=== PATIENT | male | born 1975 | race Caucasian/White ===

== ENCOUNTER → 2017-08-07 | Outpatient (CLI) | payer OTHER ==
--- NOTE | 2017-08-07 10:41 | DIAGNOSTIC IMAGING REPORT ---
EXAMINATION: RENAL ULTRASOUND CLINICAL HISTORY: HEMATURIA COMPARISON STUDY: None FINDINGS: The right kidney measures 10.7 cm. The left kidney measures 11.4 cm. There is no evidence of hydronephrosis. There is an 8 mm upper pole left renal cyst. No bladder abnormalities are visualized. Bilateral ureteral jets were visualized. There is a 2.6 cm echogenic mass within the right lobe of the liver. This is consistent with although not specific for a hepatic hemangioma. IMPRESSION : 1. 8 mm left renal cyst 2. No evidence of hydronephrosis 3. 2.6 cm echogenic mass within the right lobe of the liver Electronically signed by: Son Beth M.D. 08/07/2017 10:40 AM Dictated Date/Time: 08/07/2017 10:38 AM
== END | disposition home or self-care (01) ==
LOC: C.ULTR 09:53
PROVIDERS: ATTEND Internal Medicine Nephrology
DX: Z87.448 Personal history of other diseases of urinary system (principal); N28.1 Cyst of kidney, acquired; R16.0 Hepatomegaly, not elsewhere classified

== ENCOUNTER → 2017-08-21 | Outpatient (CLI) | payer OTHER ==
--- NOTE | 2017-08-21 09:24 | DIAGNOSTIC IMAGING REPORT ---
ABDOMEN LIMITED (US) HISTORY: Abnormal ultrasound LIVER MASS. COMPARISON: 08/07/2017 FINDINGS: Pancreas: The pancreas demonstrates a normal echotexture. Liver: 2.4 x 2.0 cm echogenic nodule superior aspect right hepatic lobe. Additional 0.9 cm echogenic nodule again superior right hepatic lobe. Liver is otherwise uniform. It is suggestive of a benign hemangiomas. Gallbladder is normal. There are no shadowing gallstones. Common bile duct measures 4 mm. Right kidney is negative for hydronephrosis. IMPRESSION: 2 benign hemangiomas of liver. Otherwise negative ultrasound. The above report was generated using voice recognition software. It may contain grammatical, syntax or spelling errors. Electronically signed by: Devon Benoit M.D. 08/21/2017 9:22 AM Dictated Date/Time: 08/21/2017 9:20 AM
== END | disposition home or self-care (01) ==
LOC: C.ULTR 08:48
PROVIDERS: ATTEND Internal Medicine Nephrology
DX: R16.0 Hepatomegaly, not elsewhere classified (principal)